=== PATIENT | female | born 1950 | race Caucasian/White ===

== ENCOUNTER 2017-02-11 08:00 | Day surgery (SDC) | payer MEDICARE ==
[~2017-02-11] VITALS: Ht 157.5 cm; Wt 36.5 kg
[~2017-02-11 08:00] MED LIST: 0.9% Sodium Chloride 1,000 ML IV SCH; ALBU8.5H2 INHALATION; BECL8.7A5 INHALATION; CALC600T12 PO; CHOL10008 PO; HYOS0.1216 PO; KETO5DRO68 OCULAR; LORA10CA PO; MONT10TA20 PO; PARO20TA57 PO; RALO60TA PO; Sodium Chloride LOK Flush 10 mL Syringe IV PRN; fentaNYL-PF 50 mCg/mL 2 mL Inj IVPUSH PRN
[2017-02-11 08:44] VITALS: BP 121/72; PULSE 82; RESP 14; O2SAT 98
== END 2017-02-11 23:59 | disposition home or self-care (01) ==
LOC: END 08:00
PROVIDERS: ATTEND Internal Medicine Gastroenterology
DX: I49.8 Other specified cardiac arrhythmias (principal); R19.7 Diarrhea, unspecified; Z53.8 Procedure and treatment not carried out for other reasons